=== PATIENT | male | born 1995 | race Caucasian/White ===

== ENCOUNTER 2018-02-13 19:41 | Emergency (ER) | payer SELFPAY ==
--- NOTE | 2018-02-13 19:45 | EDM.PDOC ---
ED HPI GENERAL MEDICAL PROBLEM - General Chief Complaint: Abdominal Pain Stated Complaint: STOMACH PAIN Time Seen by Provider: 02/13/18 19:45 Source of Information: Reports: Patient History Limitations: Reports: No Limitations - History of Present Illness INITIAL COMMENTS - FREE TEXT/NARRATIVE: HISTORY AND PHYSICAL: History of present illness: 42-year-old male presenting to emergency department with upper abdominal pain with associated nausea and vomiting 5 days. Patient states that on Monday approximately 4 days ago he began to have some upper abdominal pain. States that the pain was worse after eating. Denies history of heartburn. Has had no previous abdominal surgery and still has gallbladder and appendix. Pain was constant and felt like he was "full" and distended. He did have some associated nausea with vomiting as well as one episode of diarrhea. No hematemesis. Denies any foreign travel, camping, or recent change in diet. Denies any bloody stool or dark tarry stool. States that over the weekend the pain seemed to subside however it has returned on Monday and Monday. Currently pain is 8 out of 10 and are predominately in the upper abdomen but does have some in the right lower quadrant. Denies any associated fever, chills, cough, or sore throat. Patient is generally healthy and takes no regular medications and has no medical allergies. On exam abdomen is soft, nondistended, nonrigid. He has mild pain to palpation in the right lower quadrant, epigastric area, and left upper quadrant. No pain in the right upper quadrant with deep palpation. No CVA tenderness Review of systems: As per history of present illness and below otherwise all systems reviewed and negative. Past medical history: As per history of present illness and as reviewed below otherwise noncontributory. Surgical history: As per history of present illness and as reviewed below otherwise noncontributory. Social history: No reported history of drug or alcohol abuse. Family history: As per history of present illness and as reviewed below otherwise noncontributory. Physical exam: HEENT: Atraumatic, normocephalic, pupils reactive, negative for conjunctival pallor or scleral icterus, mucous membranes moist, throat clear, neck supple, nontender, trachea midline. Lungs: Clear to auscultation, breath sounds equal bilaterally, chest nontender. Heart: S1S2, regular, negative for clicks, rubs, or JVD. Abdomen: Soft, nondistended, RLQ, epigastric, LUQ tenderness. Negative for masses or hepatosplenomegaly. Negative for costovertebral tenderness. Pelvis: Stable nontender. Genitourinary: Deferred. Rectal: Deferred. Extremities: Atraumatic, negative for cords or calf pain. Neurovascular unremarkable. Neuro: Awake, alert, oriented. Cranial nerves II through XII unremarkable. Cerebellum unremarkable. Motor and sensory unremarkable throughout. Exam nonfocal. Diagnostics: CBC, CMP, lipase, UA/UC, CT abdomen and pelvis Therapeutics: 1 L normal saline 1, 8 mg Zofran IV 1, Bentyl 20 mg by mouth 3 times a day, Zofran ODT 4 mg Impression: Nausea with vomiting Generalized abdominal pain Mesenteric adenitis Plan: CBC, CMP, lipase, UA were all unremarkable. CT did show findings of mild nonspecific fluid-filled distention of a few small bowel loops and minimal mesenteric adenitis in the right lower quadrant. This was explained to the patient. He was given a prescription for Bentyl as well as Zofran and instructed to follow-up with a primary care provider. We did give him information for this. He was instructed to return to emergency department if he had any new or worsening symptoms. Definitive disposition and diagnosis as appropriate pending reevaluation and review of above. epigastric Pain Score (Numeric/FACES): 8 - Related Data Allergies Allergy/AdvReac Type Severity Reaction Status Date / Time No Known Allergies Allergy Verified 02/13/18 19:55 Home Meds: Home Meds . [No Known Home Meds] 02/13/18 [History] ED ROS GENERAL - Review of Systems Review Of Systems: ROS reveals no pertinent complaints other than HPI. ED EXAM, GENERAL - Physical Exam Exam: See Below Course - Vital Signs Last Recorded V/S: Last Vital Signs Temp 97.6 F 02/13/18 19:44 Pulse 77 02/13/18 19:44 Resp 14 02/13/18 19:44 BP 142/97 H 02/13/18 19:44 Pulse Ox 98 02/13/18 19:44 - Orders/Labs/Meds Orders: Active Orders 24 hr Category Date Time Status Abdomen Pelvis w Cont [CT] Stat Exams 02/13/18 20:06 Taken CULTURE URINE [RM] Stat Lab 02/13/18 20:15 Received Sodium Chloride 0.9% [Saline Flush] Med 02/13/18 20:06 Active 10 ml FLUSH ASDIRECTED PRN Sodium Chloride 0.9% [Saline Flush] Med 02/13/18 20:06 Active 2.5 ml FLUSH ASDIRECTED PRN Sodium Chloride 0.9% [Saline Flush] Med 02/13/18 20:06 Active 2.5 ml FLUSH ASDIRECTED PRN Saline Lock Insert [OM.PC] Stat Oth 02/13/18 20:06 Ordered Medication Orders Sodium Chloride (Saline Flush) 2.5 ml FLUSH ASDIRECTED PRN PRN Reason: Keep Vein Open Sodium Chloride (Saline Flush) 10 ml FLUSH ASDIRECTED PRN PRN Reason: Keep Vein Open Sodium Chloride (Saline Flush) 2.5 ml FLUSH ASDIRECTED PRN PRN Reason: Keep Vein Open Labs: Laboratory Tests 02/13/18 02/13/18 02/13/18 Range/Units 20:15 20:19 20:19 WBC 10.09 (4.0-11.0) K/uL RBC 5.68 (4.50-5.90) M/uL Hgb 17.8 H (13.0-17.0) g/dL Hct 48.0 (38.0-50.0) % MCV 84.5 (80.0-98.0) fL MCH 31.3 (27.0-32.0) pg MCHC 37.1 H (31.0-37.0) g/dL RDW Std Deviation 37.3 (28.0-62.0) fl RDW Coeff of Tab 12 (11.0-15.0) % Plt Count 270 (150-400) K/uL MPV 9.30 (7.40-12.00) fL Neut % (Auto) 62.3 (48.0-80.0) % Lymph % (Auto) 29.4 (16.0-40.0) % [place] % (Auto) 5.9 (0.0-15.0) % Eos % (Auto) 2.1 (0.0-7.0) % Baso % (Auto) 0.3 (0.0-1.5) % Neut # (Auto) 6.3 H (1.4-5.7) K/uL Lymph # (Auto) 3.0 H (0.6-2.4) K/uL [place] # (Auto) 0.6 (0.0-0.8) K/uL Eos # (Auto) 0.2 (0.0-0.7) K/uL Baso # (Auto) 0.0 (0.0-0.1) K/uL Nucleated RBC % 0.0 /100WBC Nucleated RBCs # 0 K/uL Sodium 135 L (136-148) mmol/L Potassium 4.0 (3.5-5.1) mmol/L Chloride 101 (98-107) mmol/L Carbon Dioxide 28.7 (21.0-32.0) mmol/L BUN 10 (7.0-18.0) mg/dL Creatinine 0.9 (0.8-1.3) mg/dL Est Cr Clr Drug Dosing 105.98 mL/min Estimated GFR (MDRD) > 60.0 ml/min Glucose 124 H (74-106) mg/dL Calcium 8.9 (8.5-10.1) mg/dL Total Bilirubin 0.4 (0.2-1.0) mg/dL AST 25 (15-37) IU/L ALT 64 H (14-63) IU/L Alkaline Phosphatase 86 (46-116) U/L Total Protein 8.1 (6.4-8.2) g/dL Albumin 4.5 (3.4-5.0) g/dL Globulin 3.6 H (2.0-3.5) g/dL Albumin/Globulin Ratio 1.3 (1.3-2.8) Lipase 114 (73-393) U/L Urine Color YELLOW Urine Appearance CLEAR Urine pH 7.0 (5.0-8.0) Ur Specific [place] 1.025 (1.001-1.035) Urine Protein NEGATIVE (NEGATIVE) mg/dL Urine Glucose (UA) NEGATIVE (NEGATIVE) mg/dL Urine Ketones NEGATIVE (NEGATIVE) mg/dL Urine Occult Blood NEGATIVE (NEGATIVE) Urine Nitrite NEGATIVE (NEGATIVE) Urine Bilirubin NEGATIVE (NEGATIVE) Urine Urobilinogen 0.2 (<2.0) EU/dL Ur Leukocyte Esterase NEGATIVE (NEGATIVE) Urine RBC 0-1 (0-2/HPF) Urine WBC 0-1 (0-5/HPF) Ur Epithelial Cells RARE (NONE-FEW) Urine Bacteria RARE (NEGATIVE) Meds: Medications Generic Name Dose Route Start Last Admin Trade Name Bell PRN Reason Stop Dose Admin Sodium Chloride 2.5 ml 02/13/18 20:06 Saline Flush FLUSH ASDIRECTED PRN Keep Vein Open Sodium Chloride 10 ml 02/13/18 20:06 Saline Flush FLUSH ASDIRECTED PRN Keep Vein Open Sodium Chloride 2.5 ml 02/13/18 20:06 Saline Flush FLUSH ASDIRECTED PRN Keep Vein Open Discontinued Medications Generic Name Dose Route Start Last Admin Trade Name Damiánq PRN Reason Stop Dose Admin Sodium Chloride 1,000 mls @ 999 mls/hr 02/13/18 20:06 02/13/18 20:16 Normal Saline IV 02/13/18 21:06 999 mls/hr BOLUS ONE Administration Iopamidol 100 ml 02/13/18 20:23 02/13/18 20:40 Isovue Multipack-370 (76%) IVPUSH 02/13/18 20:24 100 ml ONETIME STA Administration Morphine Sulfate 2 mg 02/13/18 20:06 02/13/18 20:16 Morphine IVPUSH 02/13/18 20:07 2 mg ONETIME ONE Administration Ondansetron HCl 8 mg 02/13/18 20:06 02/13/18 20:16 Zofran IVPUSH 02/13/18 20:07 8 mg ONETIME ONE Administration Departure - Departure Time of Disposition: 21:12 Disposition: Home, Self-Care 01 Condition: Good Clinical Impression: Generalized abdominal pain, Mesenteric adenitis Nausea and vomiting Qualifiers: Vomiting type: unspecified Vomiting Intractability: non-intractable Qualified Code(s): R11.2 - Nausea with vomiting, unspecified - Discharge Information Referrals: PCP,None [Primary Care Provider] - Forms: ED Department Discharge Additional Instructions: My general discharge The following information is given to patients seen in the emergency department who are being discharged to home. This information is to outline your options for follow-up care. We provide all patients seen in our emergency department with a follow-up referral. The need for follow-up, as well as the timing and circumstances, are variable depending upon the specifics of your emergency department visit. If you don't have a primary care physician on staff, we will provide you with a referral. We always advise you to contact your personal physician following an emergency department visit to inform them of the circumstance of the visit and for follow-up with them and/or the need for any referrals to a consulting specialist. The emergency department will also refer you to a specialist when appropriate. This referral assures that you have the opportunity for follow-up care with a specialist. All of these measure are taken in an effort to provide you with optimal care, which includes your follow-up. Under all circumstances we always encourage you to contact your private physician who remains a resource for coordinating your care. When calling for follow-up care, please make the office aware that this follow-up is from your recent emergency room visit. If for any reason you are refused follow-up, please contact the [facility] Emergency Department at and asked to speak to the emergency department charge nurse. [facility] [address] [place] [phone] Please call above number to follow-up with a primary care provider. Be sure to tell them that you were seen in the emergency department and they wish for you to be seen as soon as possible. Take medication as prescribed. Return to emergency department if any new or worsening symptoms as we discussed. - My Orders Last 24 Hours: My Active Orders 02/13/18 20:06 Abdomen Pelvis w Cont [CT] Stat Sodium Chloride 0.9% [Saline Flush] 10 ml FLUSH ASDIRECTED PRN Sodium Chloride 0.9% [Saline Flush] 2.5 ml FLUSH ASDIRECTED PRN Sodium Chloride 0.9% [Saline Flush] 2.5 ml FLUSH ASDIRECTED PRN Saline Lock Insert [OM.PC] Stat 02/13/18 20:15 CULTURE URINE [RM] Stat - Assessment/Plan Last 24 Hours: My Active Orders 02/13/18 20:06 Abdomen Pelvis w Cont [CT] Stat Sodium Chloride 0.9% [Saline Flush] 10 ml FLUSH ASDIRECTED PRN Sodium Chloride 0.9% [Saline Flush] 2.5 ml FLUSH ASDIRECTED PRN Sodium Chloride 0.9% [Saline Flush] 2.5 ml FLUSH ASDIRECTED PRN Saline Lock Insert [OM.PC] Stat 02/13/18 20:15 CULTURE URINE [RM] Stat
[2018-02-13] MEDS ORDERED: Sodium Chloride 0.9% 2.5 ML Syringe FLUSH PRN ×2 (20:06)
[2018-02-13] MEDS ORDERED: Morphine 2 MG/ML Syringe IVPUSH ONE (20:06)
[2018-02-13] MEDS ORDERED: Ondansetron 4 MG/2 ML SDV IVPUSH ONE (20:06)
[2018-02-13] MEDS ORDERED: Sodium Chloride 0.9% 1,000 ML IV ONE (20:06)
[2018-02-13] MEDS ORDERED: Sodium Chloride 0.9% 10 ML Syringe FLUSH PRN (20:06)
[2018-02-13] MEDS ORDERED: Iopamidol 755 MG/ML 500 ML Multipack Bottle IVPUSH STA (20:23)
[2018-02-13 20:53] LABS: CHLORIDE,CL 101 mmol/L (98-107); SODIUM,NA 135 mmol/L (136-148)
--- NOTE | 2018-02-14 11:10 | CT ---
EXAM DATE: 02/13/18 PATIENT'S AGE: 22 Patient: KARLIE WILLIS Facility: [place], [place] Site . Site : 1995 Study: CT Abdomen/Pelvis [id number] 8:43:47 PM Ordering Physician: Jeremias Hoffman Final Report: INDICATION: Mild right lower quadrant and generalized abdomen pain. TECHNIQUE: CT abdomen and pelvis acquired with 100 cc Isovue 370 IV contrast. COMPARISON: None. FINDINGS: Lower chest: Unremarkable. Liver: Unremarkable. Normal in size and attenuation. No masses. Gallbladder and bile ducts: Unremarkable. No stones or inflammation. No biliary dilatation. Pancreas: Unremarkable. No mass or inflammation. Spleen: Unremarkable. Normal in size. No masses. Adrenal glands: Unremarkable. No nodules. Kidneys: Unremarkable. No masses, stones, or hydronephrosis. GI tract: There are a few small bowel loops minimally distended with fluid. Remainder of the GI tract is normal in caliber and appearance. The amount of colonic stool is within normal limits. Appendix is not visualized, there are no secondary signs of appendicitis. Vasculature: Unremarkable. Lymph nodes: Few borderline enlarged right lower quadrant mesenteric lymph nodes are present. No sign of lymphadenopathy elsewhere. Omentum/Peritoneum/Abdominal Wall: Unremarkable. No sign of mass or infiltration. No free air or significant free fluid. Pelvis: Unremarkable. 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 Otherwise unremarkable. IMPRESSION: 1. Appendix is not distinctly seen. There are no secondary signs of appendicitis. 2. Mild nonspecific fluid-filled distention of a few small-bowel loops. Remainder of the GI tract is unremarkable. 3. Minimal mesenteric adenitis may be present in the right lower quadrant. 4. Remainder of the exam is unremarkable. Please note that all CT scans at this facility use dose modulation, iterative reconstruction, and/or weight-based dosing when appropriate to reduce radiation dose to as low as reasonably achievable. Dictated by Jose Garrett MD @ Feb 13 2018 8:55PM (Electronic Signature) Report Signed by Proxy. [facility]
== END 2018-02-13 21:29 | disposition home or self-care (01) ==
LOC: MW.ED 19:41
DX: I88.0 Nonspecific mesenteric lymphadenitis (principal)
CPT/HCPCS: 36415; 74177; 80053; 81001; 83690; 85025; 87086; 96361; 96374; 96375; 99284; J2270; J2405; J7040; Q9967